=== PATIENT | male | born 1950 | race Caucasian/White ===

== ENCOUNTER 2021-12-23 19:27 | Emergency (ER) | payer OTHER, MEDICAID ==
[~2021-12-23] VITALS: Ht 177.8 cm; Wt 83.9 kg
[2021-12-23 19:47] VITALS: BP_SYST 169
[2021-12-23 20:18] LABS: BASOPHILS # (AUTO) 0.1 K/uL (0.0-0.2); BASOPHILS % (AUTO) 0.5 % (0.0-2.0); EOSINOPHILS # (AUTO) 0.3 K/uL (0.0-0.4); EOSINOPHILS % (AUTO) 2.8 % (0.0-4.0); HEMATOCRIT 38.4 % (36-54); LYMPHOCYTES # (AUTO) 1.4 K/uL (1.0-5.5); MEAN CORPUSCULAR HEMOGLOBIN 29 pg (27-31); MEAN CORPUSCULAR HGB CONC 34 % (32-36); MEAN CORPUSCULAR VOLUME 85 fL (79.0-98.0); MONOCYTES # (AUTO) 1.2 K/uL (0.0-1.0); MONOCYTES % (AUTO) 10.3 % (1.7-9.3); NEUTROPHILS # (AUTO) 8.4 K/uL (1.8-7.7); NEUTROPHILS % (AUTO) 74.4 % (40.0-70.0); PLATELET COUNT (AUTO) 213 K/uL (130-430); RED BLOOD CELL COUNT(AUTO) 4.54 MIL/uL (4.2-6.2); RED CELL DISTRIBUTION WIDTH 14.1 % (9.0-15.0); WHITE BLOOD COUNT (AUTO) 11.3 K/uL (4.8-10.8)
[2021-12-23 20:47] LABS: ANION GAP 10 (5-15); CALCIUM 7.7 mg/dL (8.4-11.0); CHLORIDE 105 mmol/L (98-107); CREATININE 1.01 mg/dL (0.55-1.30); GLUCOSE 130 mg/dL (70-99); POTASSIUM 3.8 mmol/L (3.5-5.1); SODIUM SERUM 144 mmol/L (136-145); UREA NITROGEN, BLOOD 22 mg/dL (8-21)
[2021-12-23 20:55] LABS: ALANINE AMINOTRANSFERASE 19 U/L (12-78); ALBUMIN 3.5 g/dL (3.4-4.8); ASPARTATE AMINOTRANSFERASE 12 U/L (10-37); LIPASE 84 U/L (73-393); TOTAL BILIRUBIN 1.2 mg/dL (0.0-1.0)
[2021-12-23] MEDS: ACETAMINOPHEN 500 MG TABLET PO ONE (21:34)
[2021-12-23] MEDS: LIDOCAINE PATCH 5% 1 EA TP ONE (21:34)
[2021-12-23] MEDS: KETOROLAC TROMETHAMINE 15 MG VIAL IVP ONE (21:34)
[2021-12-23] MEDS ORDERED: LIDO1ADH22 TP ×2 (21:39→21:44)
[2021-12-23] MEDS ORDERED: ACET-2634 PO ×2 (21:39→21:44)
[2021-12-23 21:53] VITALS: BP_SYST 170
== END 2021-12-23 21:53 | disposition home or self-care (01) ==
LOC: SED 19:27
DX: M54.50 Low back pain, unspecified (principal); R07.89 Other chest pain; I10 Essential (primary) hypertension; E11.9 Type 2 diabetes mellitus without complications; Z79.899 Other long term (current) drug therapy
CPT/HCPCS: 36415; 71045; 80053; 81002; 83690; 83880; 84484; 85025; 85379; 93005; 99285; J1885